=== PATIENT | female | born 2000 | race American Indian/Alaskan Native ===

== ENCOUNTER 2020-03-15 10:09 | Emergency (ER) | payer SELFPAY ==
[2020-03-15 11:02] LABS: Hematocrit 41.4 % (30.3-42.9); Hemoglobin 12.8 gm/dl (10.1-14.3); Mean Corpuscular HGB Conc 31 % (30-34); Mean Corpuscular Volume 94 fl (79-97); Platelet Count 341 K/mm3 (140-440); Red Blood Count 4.39 M/mm3 (3.65-5.03); Red Cell Distribution Width 14.8 % (13.2-15.2)
[2020-03-15 11:19] LABS: Alanine Aminotransferase 15 units/L (7-56); Albumin 3.7 g/dL (3.9-5); BUN/Creatinine Ratio 16; Blood Urea Nitrogen 11 mg/dL (7-17); Calcium 9.6 mg/dL (8.4-10.2); Hemolysis Index 6
[2020-03-15] MEDS ORDERED: SODIUM CHLORIDE 0.9% 1000 ML 1,000 ML IV ONE ×3 (12:42→15:54)
[2020-03-15] MEDS ORDERED: FAMOTIDINE 20 MG/2 ML INJ IV ONE (12:42)
[2020-03-15] MEDS ORDERED: ONDANSETRON 4 MG/2 ML INJ IV ONE (12:42)
--- NOTE | 2020-03-15 13:06 | Emergency Department Report ---
HPI - HPI HPI: Room 7 The patient is a 19-year-old female present with a chief complaint of nausea and vomiting. The patient states she developed nausea vomiting today and had no preceding symptoms. Patient denies abdominal pain or fever. Patient states she is currently on her cycle and it is the normal time. <CAROLYN GARY - Last Filed: 03/15/20 16:03> <LEANDRO DSOUZA - Last Filed: 03/15/20 18:14> - General Chief Complaint: Abdominal Pain Time Seen by Provider: 03/15/20 12:29 ED Past Medical Hx - Past Medical History Previous Medical History?: No - Surgical History Past Surgical History?: No - Family History Family history: no significant - Social History Smoking Status: Never Smoker Substance Use Type: None (Denies illicit drug use) <CAROLYN GARY - Last Filed: 03/15/20 16:03> <LEANDRO DSOUZA - Last Filed: 03/15/20 18:14> - Medications Home Medications: Home Medications Medication Instructions Recorded Confirmed Last Taken Type Ondansetron [Zofran Odt] 4 mg PO Q8HR PRN #20 tab.rapdis 03/15/20 Unknown Rx Promethazine [Phenergan] 25 mg PO Q6HR PRN #20 tab 03/15/20 Unknown Rx Promethazine [Phenergan] 25 mg NJ Q6HR PRN #5 supp.rect 03/15/20 Unknown Rx ED Review of Systems ROS: Stated complaint: N/V/SOB/ Other details as noted in HPI Constitutional: denies: fever Eyes: denies: eye pain ENT: denies: throat pain Respiratory: no symptoms reported Cardiovascular: denies: chest pain Gastrointestinal: nausea, vomiting. denies: abdominal pain Genitourinary: denies: dysuria, abnormal menses Musculoskeletal: denies: back pain Neurological: denies: headache <CAROLYN GARY - Last Filed: 03/15/20 16:03> ROS: Stated complaint: N/V/SOB/ Other details as noted in HPI <LEANDRO DSOUZA - Last Filed: 03/15/20 18:14> Physical Exam - Physical Exam Vital Signs: Vital Signs 03/15/20 03/15/20 10:12 12:37 Temperature 97.7 F Pulse Rate 83 Respiratory 24 18 Rate Blood Pressure 115/55 O2 Sat by Pulse 100 Oximetry Physical Exam: GENERAL: The patient is well-developed well-nourished female lying on stretcher holding emesis bag appearing to be in mild discomfort. [] HEENT: Normocephalic. Atraumatic. Extraocular motions are intact. Patient has moist mucous membranes. NECK: Supple. Trachea midline CHEST/LUNGS: Clear to auscultation. There is no respiratory distress noted. HEART/CARDIOVASCULAR: Regular. There is no tachycardia. There is no gallop rub or murmur. ABDOMEN: Abdomen is soft, nontender. Patient has normal bowel sounds. There is no abdominal distention. SKIN: There is no rash. There is no edema. There is no diaphoresis. NEURO: The patient is awake, alert, and oriented. The patient is cooperative. The patient has normal speech MUSCULOSKELETAL: There is no evidence of acute injury. <CAROLYN GARY - Last Filed: 03/15/20 16:03> - Physical Exam Vital Signs: Vital Signs 03/15/20 03/15/20 03/15/20 10:12 12:35 12:37 Temperature 97.7 F Pulse Rate 83 88 Respiratory 24 22 18 Rate Blood Pressure 115/55 O2 Sat by Pulse 100 Oximetry 03/15/20 03/15/20 03/15/20 12:46 13:00 13:16 Temperature Pulse Rate 87 92 H 79 Respiratory 11 L 12 15 Rate Blood Pressure 106/55 77/53 77/53 O2 Sat by Pulse 100 Oximetry 03/15/20 03/15/20 03/15/20 13:30 13:46 14:00 Temperature Pulse Rate 92 H 71 88 Respiratory 17 11 L 13 Rate Blood Pressure 97/58 107/72 117/73 O2 Sat by Pulse 96 100 99 Oximetry 03/15/20 14:16 Temperature Pulse Rate Respiratory Rate Blood Pressure 117/73 O2 Sat by Pulse 100 Oximetry <LEANDRO DSOUZA - Last Filed: 03/15/20 18:14> ED Course Vital Signs 03/15/20 03/15/20 10:12 12:37 Temperature 97.7 F Pulse Rate 83 Respiratory 24 18 Rate Blood Pressure 115/55 O2 Sat by Pulse 100 Oximetry - Reevaluation(s) Reevaluation #1: 03/15/20 14:12 Patient still complaining of nausea and vomiting. Will medicate with Reglan <CAROLYN GARY - Last Filed: 03/15/20 16:03> Vital Signs 03/15/20 03/15/20 03/15/20 10:12 12:35 12:37 Temperature 97.7 F Pulse Rate 83 88 Respiratory 24 22 18 Rate Blood Pressure 115/55 O2 Sat by Pulse 100 Oximetry 03/15/20 03/15/20 03/15/20 12:46 13:00 13:16 Temperature Pulse Rate 87 92 H 79 Respiratory 11 L 12 15 Rate Blood Pressure 106/55 77/53 77/53 O2 Sat by Pulse 100 Oximetry 03/15/20 03/15/20 03/15/20 13:30 13:46 14:00 Temperature Pulse Rate 92 H 71 88 Respiratory 17 11 L 13 Rate Blood Pressure 97/58 107/72 117/73 O2 Sat by Pulse 96 100 99 Oximetry 03/15/20 14:16 Temperature Pulse Rate Respiratory Rate Blood Pressure 117/73 O2 Sat by Pulse 100 Oximetry - Reevaluation(s) Reevaluation #2: 03/15/20 16:46 pt signed out to me by DR Gary. CT abd/pelvis report pending and p.o. potassium challenge pending. Patient states she feels better does not have abdominal pain or nausea. She feels overall exhausted. She states that she started have menstrual cycle yesterday and developed vomiting today. Patient states she does have history of vomiting related to her cycles requiring her to visit the hospital for treatment. He denies marijuana use (cannabis hyperemesis consid ered). Abdomen currently soft and nontender on exam. I reconnect the patient is IV fluids to complete her IV hydration. <LEANDRO DSOUZA - Last Filed: 03/15/20 18:14> ED Medical Decision Making - Lab Data Result diagrams: 03/15/20 10:22 03/15/20 10:22 - Differential Diagnosis Nausea vomiting, gastritis, , UTI, dysmenorrhea <CAROLYN GAYR - Last Filed: 03/15/20 16:03> - Lab Data Result diagrams: 03/15/20 10:22 03/15/20 10:22 - Radiology Data Radiology results: report reviewed CT ABDOMEN AND PELVIS WITH IV CONTRAST INDICATION: Intractable nausea vomiting. COMPARISON: None available. TECHNIQUE: All CT scans at this facility use dose mo dulation, automated exposure control, iterative reconstruction or weight based dosing, when appropriate, to reduce radiation dose to as low as reasonably achievable. FINDINGS: Lung Bases: There is a 3 mm noncalcified nodule in the left lower lobe on series 2 image 8. Given the patient's age, this is doubtful clinical significance. Lung bases are otherwise clear. Skeletal System: No acute abnormality. ABDOMEN: Liver: No significant abnormality. Gallbladder: No significant abnormality. Bile Ducts: No significant abnormality. Pancreas: No significant abnormality. Spleen: No significant abnormality. Adrenals: No significant abnormality. Right Kidney: No significant abnormality. Left Kidney: No significant abnormality. Upper GI tract: The stomach is decompressed, limiting its evaluation. Duodenum is unremarkable. There are a few loops of proximal small bowel in the left upper quadrant which show mild wall thickening and contains fluid. There is no small bowel obstruction. Lymph Nodes: No si gnificant adenopathy. Aorta: No significant abnormality. Additional Findings: No significant abnormality. PELVIS: Colon: No acute abnormality. Urinary Bladder and Distal Ureters: No significant abnormality. Appendix: No significant abnormality. Lymph Nodes: No significant adenopathy. Additional Findings: None. IMPRESSION: 1. Probable mild proximal enteritis. No bowel obstruction. 2. Otherwise unremarkable CT. - Medical Decision Making Patient tolerating p.o. intake after ED treatment. She endorses that she had a similar episodes in the past related to her cycle. She will be prescribed Zofran and Phenergan NJ/p.o. to take as needed. She does not complain of pain. Follow-up advised <LEANDRO DSOUZA - Last Filed: 03/15/20 18:14> Critical care attestation.: If time is entered above; I have spent that time in minutes in the direct care of this critically ill patient, excluding procedure time. <CAROLYN GARY - Last Filed: 03/15/20 16:03> Critical Care Time: No Critical care attestation.: If time is entered above; I have spent that time in minutes in the direct care of this critically ill patient, excluding procedure time. <LEANDRO DSOUZA Last Filed: 03/15/20 18:14> ED Disposition <CAROLYN GARY - Last Filed: 03/15/20 16:03> Is pt being admited?: No Does the pt Need Aspirin: No Time of Disposition: 18:14 <LIANNAPABLITOWil Boone - Last Filed: 03/15/20 18:14> Clinical Impression: Nausea & vomiting, Menstrual cycle problem Disposition: TO HOME OR SELFCARE Condition: Stable Instructions: Acute Nausea and Vomiting (ED), Abdominal Pain (ED) Additional Instructions: Take the medication as prescribed. Follow-up with your doctor or doctor/clinic provided. Return if symptoms worsen as indicated by your discharge instructions. Prescriptions: Promethazine [Phenergan] 25 mg PO Q6HR PRN #20 tab PRN Reason: Nausea Promethazine [Phenergan] 25 mg NJ Q6HR PRN #5 supp.rect PRN Reason: Vomiting Ondansetron [Zofran Odt] 4 mg PO Q8HR PRN #20 tab.rapdis PRN Reason: Nausea And Vomiting Referrals: PRIMARY CARE, [Primary Care Provider] - 3-5 Days ELMER GARCES MD [Staff Physician] - 3-5 Days (primary care doctor ) MISTY HART MD [Staff Physician] - 3-5 Days (biomedical analytical scientist doctor ) HOLLIE GRULLON MD [Staff Physician] - 3-5 Days (GI doctor )
[2020-03-15] MEDS ORDERED: METOCLOPRAMIDE 10 MG/2 ML INJ IV ONE (14:11)
[2020-03-15 14:24] LABS: Bilirubin,Urine NEG (Negative); Blood,Urine LG (Negative); Color,Urine Yellow (Yellow); Mucus,Urine FEW /HPF; Protein,Urine <15 mg/dL mg/dL (Negative); Urobilinogen,Urine < 2.0 mg/dL (<2.0)
[2020-03-15 14:32] VITALS: BP 117/73
[2020-03-15] MEDS ORDERED: PROMETHAZINE 25 MG TAB PO ONE (15:36)
[2020-03-15] MEDS ORDERED: PROMETHAZINE 25 MG TAB ONE (15:38)
[2020-03-15] MEDS ORDERED: POTASSIUM CHLORIDE ER 20 MEQ TAB PO ONE (16:13)
--- NOTE | 2020-03-15 17:59 | Cat Scan Report ---
CT ABDOMEN AND PELVIS WITH IV CONTRAST INDICATION: Intractable nausea vomiting. COMPARISON: None available. TECHNIQUE: All CT scans at this facility use dose modulation, automated exposure control, iterative reconstructi on or weight based dosing, when appropriate, to reduce radiation dose to as low as reasonably achieva ble. FINDINGS: Lung Bases: There is a 3 mm noncalcified nodule in the left lower lobe on series 2 image 8. Given the patient's age, this is doubtful clinical significance. Lung bases are otherwise clear. Skeletal System: No acute abnormality. ABDOMEN: Liver: No significant abnormality. Gallbladder: No significant abnormality. Bile Ducts: No significant abnormality. Pancreas: No significant abnormality. Spleen: No significant abnormality. Adrenals: No significant abnormality. Right Kidney: No significant abnormality. Left Kidney: No significant abnormality. Upper GI tract: The stomach is decompressed, limiting its evaluation. Duodenum is unremarkable. There are a few loops of proximal small bowel in the left upper quadrant which show mild wall thickening a nd contains fluid. There is no small bowel obstruction. Lymph Nodes: No significant adenopathy. Aorta: No significant abnormality. Additional Findings: No significant abnormality. PELVIS: Colon: No acute abnormality. Urinary Bladder and Distal Ureters: No significant abnormality. Appendix: No significant abnormality. Lymph Nodes: No significant adenopathy. Additional Findings: None. IMPRESSION: 1. Probable mild proximal enteritis. No bowel obstruction. 2. Otherwise unremarkable CT. Signer Name: Peterson Callejas MD Signed: 03/15/2020 5:55 PM Workstation Name: [id number]
== END 2020-03-15 18:40 | disposition home or self-care (01) ==
LOC: ED 10:09
DX: R10.9 Unspecified abdominal pain (principal); R11.2 Nausea with vomiting, unspecified; N92.6 Irregular menstruation, unspecified; Z79.899 Other long term (current) drug therapy
CPT/HCPCS: 36415; 74177; 80053; 81001; 83690; 84703; 85025; 96374; 96375; 99284; J2405; J2765; J7030; Q0169; Q9967

== ENCOUNTER 2021-08-01 12:19 | Emergency (ER) | payer SELFPAY ==
[2021-08-01] MEDS ORDERED: SODIUM CHLORIDE 0.9% 1000 ML 1,000 ML IV ONE ×2 (13:03→16:52)
[2021-08-01] MEDS ORDERED: ONDANSETRON 4 MG/2 ML INJ IV ONE (13:03)
[2021-08-01] MEDS ORDERED: MORPHINE 4 MG/1 ML INJ IV ONE (13:03)
--- NOTE | 2021-08-01 13:04 | Emergency Department Report ---
ED N/V/D HPI - General Chief complaint: Nausea/Vomiting/Diarrhea Stated complaint: ABD PAIN Time Seen by Provider: 08/01/21 12:46 Source: patient Mode of arrival: Stretcher Limitations: No Limitations - History of Present Illness Initial comments: 20-year-old female who reports a history of gastritis but no other significant past history presents to the ER today via EMS with severe nausea and vomiting and abdominal pain. Patient states that symptoms started 3 days ago and has been constant. She reports multiple episodes of vomiting. She states every time she tries to eat or drink, she vomits. She denies any coffee-ground emesis or hematemesis. She states that she tried taking antacids, but was unable to tolerate due to the vomiting. She denies any associated diarrhea. She is currently on her menstrual cycle. She denies any UTI symptoms, fever or chills. She denies any history of abdominal surgeries in the past. She states that she has not eaten any bad food as far she knows, she has not traveled and she denies alcohol abuse. She states that she has not eaten anything that would have flared up her gastritis. MD complaint: nausea, vomiting, abdominal pain -: days(s) (3) - Related Data Previous Rx's Medication Instructions Recorded Last Taken Type Ondansetron [Zofran Odt] 4 mg PO Q8HR PRN #20 tab.rapdis 03/15/20 Unknown Rx Promethazine [Phenergan] 25 mg PO Q6HR PRN #20 tab 03/15/20 Unknown Rx Promethazine [Phenergan] 25 mg AL Q6HR PRN #5 supp.rect 03/15/20 Unknown Rx Famotidine [Pepcid] 20 mg PO BID #60 tablet 08/01/21 Unknown Rx Hyoscyamine Subl [Levsin Sl 0.125 0.125 mg SL Q6HR PRN #20 tab 08/01/21 Unknown Rx TAB] Omeprazole 20 mg PO QDAY #30 tablet. 08/01/21 Unknown Rx Ondansetron [Zofran ODT TAB] 4 mg PO Q8HR #30 tab.rapdis 08/01/21 Unknown Rx Allergies Allergy/AdvReac Type Severity Reaction Status Date / Time prochlorperazine Allergy Unknown Verified 08/01/21 12:31 [From Compazine] ED Review of Systems ROS: Stated complaint: ABD PAIN Other details as noted in HPI Comment: All other systems reviewed and negative Constitutional: denies: chills, fever Eyes: denies: eye pain, eye discharge, vision change ENT: denies: ear pain, throat pain Respiratory: denies: cough, shortness of breath, SOB with exertion, SOB at rest, wheezing Cardiovascular: denies: chest pain, palpitations, dyspnea on exertion, edema, syncope, paroxysmal nocturnal dyspnea Gastrointestinal: abdominal pain, nausea, vomiting. denies: diarrhea, constipation, hematemesis, hematochezia Genitourinary: denies: urgency, dysuria, frequency, hematuria, discharge, abnormal menses, dyspareunia Skin: denies: rash, lesions, change in color, change in hair/nails, pruritus Neurological: denies: headache, weakness, numbness, paresthesias, confusion, abnormal gait, vertigo Psychiatric: denies: anxiety, depression, auditory hallucinations, visual hallucinations, homicidal thoughts, suicidal thoughts Hematological/Lymphatic: denies: easy bleeding, easy bruising ED Past Medical Hx - Past Medical History Additional medical history: Gastritis - Social History Smoking Status: Never Smoker Substance Use Type: None - Medications Home Medications: Home Medications Medication Instructions Recorded Confirmed Last Taken Type Ondansetron [Zofran Odt] 4 mg PO Q8HR PRN #20 tab.rapdis 03/15/20 Unknown Rx Promethazine [Phenergan] 25 mg PO Q6HR PRN #20 tab 03/15/20 Unknown Rx Promethazine [Phenergan] 25 mg AL Q6HR PRN #5 supp.rect 03/15/20 Unknown Rx Famotidine [Pepcid] 20 mg PO BID #60 tablet 08/01/21 Unknown Rx Hyoscyamine Subl [Levsin Sl 0.125 0.125 mg SL Q6HR PRN #20 tab 08/01/21 Unknown Rx TAB] Omeprazole 20 mg PO QDAY #30 tablet.dr 08/01/21 Unknown Rx Ondansetron [Zofran ODT TAB] 4 mg PO Q8HR #30 tab.rapdis 08/01/21 Unknown Rx ED Physical Exam - General Limitations: No Limitations General appearance: alert, in distress - Head Head exam: Present: atraumatic, normocephalic, normal inspection - Eye Eye exam: Present: normal appearance, PERRL, EOMI Pupils: Present: normal accommodation - Neck Neck exam: Present: normal inspection, full ROM - Respiratory Respiratory exam: Present: normal lung sounds bilaterally. Absent: respiratory distress, wheezes, rales, rhonchi - Cardiovascular Cardiovascular Exam: Present: regular rate, normal rhythm, normal heart sounds - GI/Abdominal GI/Abdominal exam: Present: soft, tenderness (diffuse ). Absent: distended, guarding, rebound - Neurological Exam Neurological exam: Present: alert, oriented X3, CN II-XII intact, normal gait - Psychiatric Psychiatric exam: Present: normal affect, normal mood - Skin Skin exam: Present: intact ED Course Vital Signs 08/01/21 08/01/21 08/01/21 12:32 14:40 15:19 Temperature 97.6 F 97.8 F Pulse Rate 87 90 Respiratory 18 14 18 Rate Blood Pressure 125/74 119/73 [Left] O2 Sat by Pulse 100 98 100 Oximetry 08/01/21 08/01/21 17:33 20:47 Temperature 97.7 F Pulse Rate 81 88 Respiratory 18 16 Rate Blood Pressure 119/81 117/81 [Left] O2 Sat by Pulse 100 98 Oximetry ED Medical Decision Making - Lab Data Result diagrams: 08/01/21 13:09 08/01/21 13:09 - Radiology Data Radiology results: report reviewed Patient: MAURY HAMMER MR#: [id number] : 2000 Acct:[id number] Age/Sex: 20 / F ADM Date: 08/01/21 Loc: ED Attending Dr: Ordering Physician: LARISSA FIELDS Date of Service: 08/01/21 Procedure(s): CT abdomen pelvis wo con Accession Number(s): [id number] cc: LARISSA FIELDS CT ABDOMEN AND PELVIS WITHOUT CONTRAST INDICATION / CLINICAL INFORMATION: abd pain/nausea and vomiting. TECHNIQUE: Axial CT images were obtained through the abdomen and pelvis without IV contrast. All CT scans at this location are performed using CT dose reduction for ALARA by means of automated exposure control. COMPARISON: 03/15/2020 FINDINGS: LOWER CHEST: There are several solid pulmonary nodules within the bilateral lung bases, which given patient's age are likely postinfectious or postinflammatory nodules. AORTA / ARTERIES: No significant abnormality. IVC / VEINS: No significant abnormality. LYMPH NODES: No significant adenopathy. COLON: No significant abnormality. APPENDIX: No significant abnormality. STOMACH / SMALL BOWEL: No significant abnormality. PERITONEUM: No free fluid. No free air. No fluid collection. LIVER: No significant abnormality. GALLBLADDER: No significant abnormality. BILE DUCTS: No significant abnormality. PANCREAS: No significant abnormality. SPLEEN: No significant abnormality. ADRENALS: No significant abnormality. RIGHT KIDNEY / URETER: No significant abnormality. LEFT KIDNEY / URETER: No significant abnormality. URINARY BLADDER: No significant abnormality. REPRODUCTIVE ORGANS: No significant abnormality. SKELETAL SYSTEM: No significant abnormality. ADDITIONAL FINDINGS: None. IMPRESSION: 1. No significant abnormality. 2. Other findings as above. Signer Name: Mitchell Conway DO Signed: 08/01/2021 7:10 PM Workstation Name: [id number] Transcribed By: TI Dictated By: MITCHELL CONWAY DO Electronically Authenticated By: MITCHELL CONWAY DO Signed Date/Time: 08/01/211909 DD/ 06 TD/TT: - Medical Decision Making Patient appears to be feeling better. She has not had any more vomiting or diarrhea since receiving the Reglan, and IV fluids. Patient received a total of 2 L of IV fluids here in ER. All labs reviewed= CBC and CMP unremarkable. Urinalysis negative for UTI. hCG negative. Lipase normal. CT scan shows incidental findings of pulmonary nodules but otherwise nothing acute. Patient multiple repeat vital signs have been stable. Discussed all lab results, imaging results and incidental findings with patient. At this time there is no indication for any additional testing, admission or specialist consult at this time. Discussed suspected diagnosis and treatment plan with patient. Recommend follow-up with GI specialist for possible endoscopy and also follow-up with PCP for follow-up on her pulmonary nodules. Patient expressed understanding of instructions and agree with plan. Patient stable at time of discharge. Critical care attestation.: If time is entered above; I have spent that time in minutes in the direct care of this critically ill patient, excluding procedure time. ED Disposition Clinical Impression: Nausea & vomiting, Abdominal pain, Gastritis, Pulmonary nodule Disposition: HOME / SELF CARE / HOMELESS Is pt being admited?: No Does the pt Need Aspirin: No Condition: Stable Instructions: Gastritis, Adult, Nausea and Vomiting, Adult, [id number], Pulmonary Nodule, [id number] Additional Instructions: Recommend that you take the Levsin, and the Zofran as prescribed to help with abdominal cramps, nausea and vomiting. I do recommend that you start taking the Pepcid and omeprazole as precribed to help with gastritis. Drink lots of water. Do the bland diet listed on your discharge instructions. Your CT showed incidental findings of pulmonary nodules which will need to follow-up with your PCP. Follow-up with the primary care doctor listed in your discharge instructions. Return to the ER if your symptoms changes or worsens in any way. Prescriptions: Hyoscyamine Subl [Levsin Sl 0.125 TAB] 0.125 mg SL Q6HR PRN #20 tab PRN Reason: Abdominal pain Omeprazole 20 mg PO QDAY #30 tablet. Famotidine [Pepcid] 20 mg PO BID #60 tablet Ondansetron [Zofran ODT TAB] 4 mg PO Q8HR #30 tab.grant Referrals: [facility] [Provider Group] - 3-5 Days Forms: Work/School Release Form(ED) Time of Disposition: 20:33 Print Language: [place]
[2021-08-01 14:12] LABS: Alanine Aminotransferase 12 units/L (7-56); Albumin 4.5 g/dL (3.9-5); BUN/Creatinine Ratio 19; Blood Urea Nitrogen 15 mg/dL (7-17); Hemolysis Index 38
[2021-08-01 14:23] LABS: Red Cell Distribution Width 13.8 % (13.2-15.2)
[2021-08-01 14:36] LABS: Hematocrit 40.8 % (30.3-42.9); Hemoglobin 14.1 gm/dl (10.1-14.3); Mean Corpuscular HGB Conc 35 % (30-34); Mean Corpuscular Volume 91 fl (79-97); Platelet Count 367 K/mm3 (140-440)
[2021-08-01] MEDS ORDERED: METOCLOPRAMIDE 10 MG/2 ML INJ IV ONE (16:52)
[2021-08-01 18:40] LABS: Bilirubin,Urine NEG (Negative); Blood,Urine LG (Negative); Color,Urine Yellow (Yellow); Mucus,Urine 1+ /HPF
--- NOTE | 2021-08-01 19:14 | Cat Scan Report ---
CT ABDOMEN AND PELVIS WITHOUT CONTRAST INDICATION / CLINICAL INFORMATION: abd pain/nausea and vomiting. TECHNIQUE: Axial CT images were obtained through the abdomen and pelvis without IV contrast. All CT scans at this location are performed using CT dose reduction for ALARA by means of automated exposure control. COMPARISON: 03/15/2020 FINDINGS: LOWER CHEST: There are several solid pulmonary nodules within the bilateral lung bases, which given p atient's age are likely postinfectious or postinflammatory nodules. AORTA / ARTERIES: No significant abnormality. IVC / VEINS: No significant abnormality. LYMPH NODES: No significant adenopathy. COLON: No significant abnormality. APPENDIX: No significant abnormality. STOMACH / SMALL BOWEL: No significant abnormality. PERITONEUM: No free fluid. No free air. No fluid collection. LIVER: No significant abnormality. GALLBLADDER: No significant abnormality. BILE DUCTS: No significant abnormality. PANCREAS: No significant abnormality. SPLEEN: No significant abnormality. ADRENALS: No significant abnormality. RIGHT KIDNEY / URETER: No significant abnormality. LEFT KIDNEY / URETER: No significant abnormality. URINARY BLADDER: No significant abnormality. REPRODUCTIVE ORGANS: No significant abnormality. SKELETAL SYSTEM: No significant abnormality. ADDITIONAL FINDINGS: None. IMPRESSION: 1. No significant abnormality. 2. Other findings as above. Signer Name: Mitchell Conway DO Signed: 08/01/2021 7:10 PM Workstation Name: [id number]
[2021-08-01 20:48] VITALS: BP 117/81
== END 2021-08-01 20:46 | disposition home or self-care (01) ==
LOC: ED 12:19
DX: K29.70 Gastritis, unspecified, without bleeding (principal); R91.1 Solitary pulmonary nodule; Z88.8 Allergy status to other drugs, medicaments and biological substances; Z79.899 Other long term (current) drug therapy
CPT/HCPCS: 36415; 74176; 80053; 81001; 83690; 84703; 85025; 96361; 96374; 96375; 99284; J2270; J2405; J2765; J7030